=== PATIENT | male | born 1980 | race Caucasian/White ===

== ENCOUNTER 2017-09-26 20:35 | Emergency (ER) | payer MEDICAID ==
[~2017-09-26] VITALS: Ht 167.6 cm; Wt 63.5 kg
[2017-09-26 20:41] VITALS: BP_SYST 111
[2017-09-26] MEDS ORDERED: LIDOCAINE 1% 10 MG/ML, 20 ML MDV INJ ONE (21:00)
[2017-09-26 21:20] VITALS: BP_SYST 114
== END 2017-09-26 21:20 ==
LOC: SED 20:35
DX: S61.212A Laceration without foreign body of right middle finger without damage to nail, initial encounter (principal); S60.454A Superficial foreign body of right ring finger, initial encounter; W45.8XXA Other foreign body or object entering through skin, initial encounter; Y93.89 Activity, other specified; Y92.89 Other specified places as the place of occurrence of the external cause; Y99.8 Other external cause status
CPT/HCPCS: 12001; 99284; J2001